=== PATIENT | female | born 1945 | race Hispanic/Latino ===

== ENCOUNTER 2019-12-06 06:42 | Outpatient (CLI) | payer MEDICARE, OTHER ==
--- NOTE | 2019-12-06 14:04 | PET Report ---
PET/CT HISTORY: J98.4. Lung nodules TECHNIQUE: The patient's fasting blood glucose was 103. The patient weighed 105 lbs. The patient w as injected with 13.83 mCi of FDG in the right antecubital fossa at 0800 hours and imaging was starte d at 0845 hours. The patient was imaged from the skull base to the thighs. All CT scans at this loca tion are performed using CT dose reduction for ALARA by means of automated exposure control. Images w ere reviewed on a workstation. COMPARISON: None FINDINGS: IMAGED BRAIN: [Physiologic FDG uptake] NECK: [Physiologic FDG uptake] CHEST WALL: [Physiologic FDG uptake] MEDIASTINUM: [Physiologic FDG uptake] LUNGS: [Physiologic FDG uptake]. Moderate underlying centrilobular and paraseptal emphysematous del val[place] ges are identified. Subpleural scarring in the posterior left apex is identified measuring 4.4 x 2.5 cm in axial plane and demonstrates a max SUV of 1.8. A similar appearing area of subpleural scarring in the posterior right upper lobe measures 3.9 x 1.5 cm in axial plane and demonstrates a max SUV of 1.5. There are 2 nodules in the lateral right lower lobe measuring 5 mm and 7 mm which demonstrate a max SUV of 1.2. No hypermetabolic pulmonary nodule or mass is identified. HEPATOBILIARY: [Physiologic FDG uptake]. Liver SUV measures 3.0. PANCREAS: [Physiologic FDG uptake SPLEEN: [Physiologic FDG uptake] KIDNEYS/BLADDER: [Physiologic FDG uptake]. Few scattered renal calyceal stones are noted. No hydrone phrosis. ADRENAL GLANDS: [Physiologic FDG uptake] GI/MESENTERY: [Physiologic FDG uptake] PELVIC VISCERA: [Physiologic FDG uptake] LYMPH NODES: [Physiologic FDG uptake] OSSEOUS STRUCTURES: [Physiologic FDG uptake]. Osteopenia and mild scoliosis is noted. No fracture or suspicious bony lesion. ADDITIONAL FINDINGS: [None] IMPRESSION: Essentially negative PET/CT. Underlying emphysematous changes are suspected. There is subpleural sca rring in both lung apices. 2 millimetric nodules are identified in the lateral right lower lobe which are hypometabolic. No PET/CT findings to suggest a neoplastic process. Consider CT surveillance. Signer Name: Brandt Daugherty Jr, MD Signed: 12/06/2019 1:59 PM Workstation Name: [id number]
== END 2019-12-06 06:43 | disposition home or self-care (01) ==
LOC: PET 06:42
PROVIDERS: ATTEND Internal Medicine
DX: J43.2 Centrilobular emphysema (principal); R91.1 Solitary pulmonary nodule; J98.4 Other disorders of lung
CPT/HCPCS: 78815; 82962; A9552